=== PATIENT | female | born 1940 | race Caucasian/White ===

== ENCOUNTER → 2016-09-16 | Outpatient (CLI) | payer MEDICARE ==
[~2016-09-16] VITALS: Ht 157.5 cm; Wt 69.8 kg
[~2016-09-16] MED LIST: ANUSOL HC CREAM30 GM TP; ASPIRIN 81M81 MG/TA2 PO; FLOVENT 220MCG7.9 GM PO; GLUCOTROL XL2.5 MG PO; HCTZ 25MG TAB25 MG PO; IRON325 MG PO; LEVAQUIN 750MG750 M1 PO; LOFIBRA160 MG PO; NEURONTIN600 MG/TAB PO; PLAVIX 75MG TAB75 MG PO; PRILOSEC 20MG20 MG PO; RT ADVAIR 228 DISKUS IH; SPIRIVA RE2.5 MCG/Ac IH; ULTRAM 50MG TAB50 MG PO; ZESTRIL 5MG5 MG PO
[2016-09-16 05:54] VITALS: BP 127/71; PULSE 75
[2016-09-16 06:14] LABS: BASO # 0.1 (0.0-0.2); BASO % 1.2 % (0.0-2.0); EOS # 0.1 (0.0-0.7); EOS % 2.7 % (0-4.0); GRAN # 2.4 (1.4-6.5); GRAN % 57.7 % (42.2-75.2); LYMPH # 1.1 (1.2-3.4); LYMPH % 27.3 % (20.0-51.0); MEAN CELL VOLUME 71 fl (80.0-100.0); MEAN CORPUSCULAR HGB CONC 26 g/dl (33.0-37.0); MEAN PLATELET VOLUME 9.7 fl (7.4-10.4); MONO # 0.4 (0.1-0.6); MONO % 10.6 % (1.7-9.3); PLATELET COUNT 297 K/mm3 (130-400); RED BLOOD COUNT 3.83 M/mm3 (4.10-5.30); REDCELL DISTRIBUTION WIDTH-CV 17.9 % (11.5-14.5); WHITE BLOOD COUNT 4.1 K/mm3 (4.8-10.8)
[2016-09-16 06:30] LABS: ADJUSTED CALCIUM 10.1 mg/dL (8.4-10.2); ALANINE AMINOTRANSFERASE 25 U/L (9-52); ALKALINE PHOSPHATASE 65 U/L (50-136); ANION GAP 12 mmol/L (7-16); BILIRUBIN,TOTAL 0.7 mg/dL (0.0-1.0); BLOOD UREA NITROGEN 15 mg/dL (7-17); CALCIUM 10.1 mg/dL (8.4-10.2); CARBON DIOXIDE 26 mmol/L (22-30); CHLORIDE 103 mmol/L (98-107); CREATININE, serum 0.81 mg/dL (0.52-1.25); GLUCOSE 135 mg/dL (74-106); POTASSIUM 3.6 mmol/L (3.4-5.0); SODIUM 141 mmol/L (137-145); TOTAL PROTEIN 7.3 gm/dL (6.4-8.2)
[2016-09-16 06:32] LABS: HEMOGLOBIN 7.1 g/dl (12.5-16.0); MEAN CORPUSCULAR HEMOGLOBIN 19 pg (27.0-31.0)
[2016-09-16 06:40] LABS: TROPONIN-I < 0.012 ng/mL (0.000-0.034)
[2016-09-16 06:52] LABS: CHOLESTEROL 177 mg/dL (120-200); HDL CHOLESTEROL 37 mg/dL; LDL CHOLESTEROL 113 mg/dL; TRIGLYCERIDE 136 mg/dL
[2016-09-16 07:55] LABS: RETIC % 1.9 % (0.5-3.52)
[2016-09-16 08:10] LABS: TOTAL IRON BINDING CAPACITY 545 ug/dL (265-497)
[2016-09-16 08:37] LABS: FERRITIN 4 ng/mL (11-264)
== END ==
LOC: COL.CARD 05:36
PROVIDERS: Internal Medicine Interventional Cardiology
DX: E11.42 Type 2 diabetes mellitus with diabetic polyneuropathy (principal); D64.89 Other specified anemias
CPT/HCPCS: A9502

== ENCOUNTER 2016-09-23 10:55 | Outpatient (RCR) | payer MEDICARE ==
[~2016-09-23] VITALS: Ht 157.5 cm; Wt 68.6 kg
[2016-09-23] VITALS (8 sets, daily range): BP systolic 111–147; BP diastolic 52–71; PULSE 76–85; TEMP 96.6–98.3
[~2016-09-23 10:55] MED LIST changes: -IRON325 MG PO
[2016-09-23] MEDS ORDERED: IRON325 MG PO (12:00)
[2016-09-23 12:21] LABS: HEMATOCRIT 28.1 % (37.0-47.0); HEMOGLOBIN 7.4 g/dl (12.5-16.0)
== END 2016-09-23 15:36 | disposition home or self-care (01) ==
LOC: EUO 10:55
PROVIDERS: Emergency Medicine
DX: D64.89 Other specified anemias (principal)
CPT/HCPCS: J7050; P9016

== ENCOUNTER 2022-08-17 12:35 | Day surgery (SDC) | payer MEDICARE, BC, MEDICAID ==
[2022-08-17] VITALS (13 sets, daily range): BP systolic 109–158; BP diastolic 52–106; PULSE 63–97; TEMP 98–98.6
[~2022-08-17] VITALS: Ht 157.5 cm; Wt 64.0 kg
[~2022-08-17 12:35] MED LIST changes: +FLOVENT 110MCG7.9 GM IH; -FLOVENT 220MCG7.9 GM PO; +IRON325 MG PO
[2022-08-17 13:44] LABS: PROTHROMBIN TIME 11.7 SECONDS (9.7-12.8)
[2022-08-17] MEDS ORDERED: IRON TABLETS325 MG PO (13:50)
[2022-08-17 13:51] LABS: CALCIUM 10.7 mg/dL (8.4-10.2); CREATININE, serum 1.22 mg/dL (0.57-1.11); POTASSIUM 4.3 mmol/L (3.5-4.5)
[2022-08-17] MEDS ORDERED: IMDUR 60MG60 MG/TAB PO (13:55)
[2022-08-17] MEDS ORDERED: LASIX 40MG TABL40 MG PO (13:55)
[2022-08-17] MEDS ORDERED: COZAAR 25MG25 MG/TAB PO (13:56)
[2022-08-17] MEDS ORDERED: ANTIVERT 25MG25 MG PO (13:56)
[2022-08-17] MEDS ORDERED: MELATONIN3 M1 (13:57)
[2022-08-17] MEDS ORDERED: TOPROL XL 25MG25 MG PO (13:57)
[2022-08-17] MEDS ORDERED: PROTONIX 40MG T40 MG PO (13:58)
[2022-08-17] MEDS ORDERED: CENTRUM SILVER1 CTB PO (13:59)
[2022-08-17] MEDS ORDERED: VITAMIN B12 1541 TAB PO (13:59)
[2022-08-17] MEDS ORDERED: K-TAB20 PO (14:00)
[2022-08-17] MEDS ORDERED: TRELEGY ELLIPT1 EACH IH (14:01)
[2022-08-17] MEDS ORDERED: TYLENOL 500MG500 MG PO (14:01)
[2022-08-17] MEDS ORDERED: SENOKOT8.6 MG PO (14:02)
[2022-08-17 14:11] LABS: HEMATOCRIT 42.5 % (37.0-47.0); HEMOGLOBIN 13.9 g/dl (12.5-16.0); MEAN CELL VOLUME 90 fl (80.0-100.0); MEAN CORPUSCULAR HEMOGLOBIN 29 pg (27-31); MEAN CORPUSCULAR HGB CONC 33 g/dl (33.0-37.0); MEAN PLATELET VOLUME 11.4 fl (7.4-10.4); PLATELET COUNT 284 K/mm3 (130-400); RED BLOOD COUNT 4.75 M/mm3 (4.10-5.30); REDCELL DISTRIBUTION WIDTH-CV 14.5 % (11.5-14.5)
--- NOTE | 2022-08-17 14:45 | NUR ---
SEE MERGE FOR ALL MEDICATION ADMINISTRATION TIMES/DOSAGES AND INTRA/POST PROCEDURE SEDATION ASSESSMENTS.
--- NOTE | 2022-08-17 16:35 | NUR ---
AT 1615 ACTIVE BLEEDING OF RIGHT FEMORAL SITE. PRESSURE HELD X10 MINUTES. NEW PRESSURE DRESSING WITH GAUZE IN PLACE. SANDBAG IN PLACE. BLEEDING SUBSIDED.
--- NOTE | 2022-08-17 16:56 | NUR ---
JANETH BLANKENSHIP NOTIFIED OF BLEEDING AT R FEMORAL SITE. VSS, PRESSURE HELD AND SANDBAG IN PLACE. PA AWARE. STATES TO LET HIM KNOW IF FURTHER BLEEDING OCCUR.
--- NOTE | 2022-08-17 17:20 | NUR ---
ALANNA ANTHONY AT BEDSIDE
--- NOTE | 2022-08-17 22:37 | NUR ---
THIS NURSE DID BSSR WITH DAYSHIFT RN. OLD BLEEDING NOTED ON DRESSING TO RIGHT GROIN. DAY SHIFT NURSE STATED IT ISNT ANY NEW BLEEDING. PATIENT DENIES FURTHER QUESTIONS OR CONCERNS AT THIS TIME
--- NOTE | 2022-08-17 23:05 | NUR ---
DISCHARGE INSTRUCTIONS READ TO PATIENT AND PATIENTS DAUGHTER. PATIENT AND DAUGHTER VERBALIZED UNDERSTANDING AND DENY FURTHER QUESTIONS. IV REMOVED. PATIENT A&OX3 AT TIME OF DC AND PATIENT DENIES PAIN. PATIENT HAS NO NEW BLEEDING TO BILATERAL GROIN SITES.
== END 2022-08-17 22:40 | disposition home or self-care (01) ==
LOC: COL.CAR 12:35 → MEDICAL 18:57 → COL.CAR 22:40
PROVIDERS: Internal Medicine Interventional Cardiology
DX: I25.10 Atherosclerotic heart disease of native coronary artery without angina pectoris (principal); I10 Essential (primary) hypertension; I73.9 Peripheral vascular disease, unspecified; Z79.899 Other long term (current) drug therapy
CPT/HCPCS: OP; C1769; C1894; J1644; J2250; J2405; Q9967